=== PATIENT | female | born 1950 | race Caucasian/White ===

== ENCOUNTER → 2019-08-22 | Day surgery (SDC) | payer OTHER ==
[~2019-08-22] VITALS: Ht 154.9 cm; Wt 93.0 kg
[~2019-08-22] MED LIST: AFRIN15 ML NS; ALBUTEROL2.5 MG/0.5 INH; ALL DAY ALLERGY10 M3 PO; ASA81BEC PO; LEVOTHYROXIN0.125 M1 PO; MECLIZINE HCL25 MG PO; NORVASC 2.5 MG2.5 M1 PO; PANTOPRAZOLE SO40 M1 PO; PAXIL 20 MG TAB20 M1 PO; PAXIL10 MG PO; PROTONIX40 M1 PO; SINGULAIR 10 MG10 M1 PO; SYMBICORT160 MCG/4. INH; SYMBICORT160 MCG/4. PO; SYNTHROID125 MC1 PO; TESSALON PERLE100 MG PO; VENTOLIN HFA 1818 GM INH; VITAMIN C500 M1 PO; VITAMIN D3400 UNIT PO
[2019-08-22 08:55] VITALS: BP 125/76
--- NOTE | 2019-08-22 10:33 | EKG ---
[address] [place] [address] ELECTROCARDIOGRAM REPORT Name: KIA REYES Room #: 150-2 [facility] M.R.#: [id number] Admission: 08/22/19 Attend Phys: Jose Winchester Discharge: Date of : 46 Report #: [id number] THIS REPORT FOR: //name// [facility] Test Date: 2019-08-22 Test Time: 08:11:36 Pat Name: KIA REYES Department: Room: 150 2 Gender: F Inside Sales Administrator: kyle : 1950 Requested By: Jose Guerrero Order Number: [id number] MD: Prosper Logan Measurements Intervals [place] Rate: 72 P: 31 WI: 159 QRS: -39 QRSD: 97 T: 99 QT: 435 QTc: 477 Interpretive Statements Sinus rhythm Left axis deviation early transition Nonspecific T abnormalities, lateral leads Compared to ECG 06/18/2016 22:50:45 no significant changes Electronically Signed On 08-22-2019 10:33:00 CDT by Prosper Logan [email or web address] <ELECTRONICALLY SIGNED> By: Prosper Logan MD 08/22/19 1033 0 0 Prosper Logan MD /EPI
[2019-08-22 11:31] VITALS: BP 125/76
--- NOTE | 2019-09-24 11:38 | O ---
[facility] [place] [address] OPERATIVE REPORT Name: KIA REYES Room #: REG [facility] M.R.#: [id number] Admission: 08/22/19 Attend Phys: Jose Winchester Discharge: Date of : 46 Report #: [id number] THIS REPORT FOR: //name// CC: Jose Guerrero De Lior DATE OF SERVICE: 08/22/2019 PREOPERATIVE DIAGNOSIS: Left clavicle fracture, comminuted, displaced, shortened. POSTOPERATIVE DIAGNOSIS: Left clavicle fracture, comminuted, displaced, shortened. PROCEDURE PERFORMED: Open reduction and internal fixation of left midshaft clavicle fracture, bone grafting. SURGEON: Jose Guerrero MD GLASS SETTER: Renetta Husain PA-C. ANESTHESIA: General. FLUIDS: Approximately 800 mL of crystalloid. ESTIMATED BLOOD LOSS: Approximately 50 mL. IMPLANTS UTILIZED: Arthrex locking clavicle plate. DESCRIPTION OF PROCEDURE: After proper identification of the patient and operative site in preoperative holding area, the operative site was signed by myself. The patient was present with her daughter. We reviewed the risks, benefits, alternatives and potential complications of her injury as well as treatment. They wished to proceed with the above. The patient was brought back to the operative suite after induction of satisfactory general anesthesia in the beach chair. Head of bed was carefully elevated approximately 40 degrees. The left clavicle and shoulder was sterilely prepped and draped in the usual manner. Final skin draping was with Ioban. An incision overlying the shortened and displaced clavicle fracture was planned. Skin was incised sharply. Full thickness skin flaps were developed. Dissection continued down to the clavicle where subperiosteal dissection was used to expose the fracture site. There was comminution at the fracture site with multiple small fragments without any soft tissue attachment and along more posterior and inferior oblique component attached to the more laterally based fragment. The fracture was able to be reduced as best as possible, provisionally secured with a bone holding forceps and a locking plate was provisionally secured using two cortical screws. Its [facility] [address] [place] [address] OPERATIVE REPORT Name: KIA REYES Room #: REG [facility] M.R.#: [id number] Admission: 08/22/19 Attend Phys: Jose Winchester Discharge: Date of : 46 Report #: [id number] position was checked in the AP and lateral planes or its position was checked in multiple planes and it was deemed to be in satisfactory position due to the comminution and could not be anatomically aligned, but this was aligned to try and maximize the surface area of contact of the bony ends. There was a small bony defect where cancellous allograft chips were carefully impacted to fill this void, which was near the central screw hole that was not filled. Four screws with bicortical fixation was achieved medially and 3 screws laterally. Overall, reduction was satisfactory as well as hardware placement for the screw was utilized, 4 locking screws. Multiple implant images were taken. Overall, reduction and hardware placement was satisfactory. One gram of vancomycin powder was utilized, half of it deep, half of it more superficial. Fascial layer was closed with 0 Vicryl, 2-0 Vicryl for the subcutaneous tissues, final skin closure was with a running Monocryl. Dermabond was applied followed by a sterile dressing, should be placed in a sling and abduction pillow with anticipated discharge to the recovery room in stable condition. Qualified senior it assistant utilized throughout the entire procedure to aid in patient limb positioning, visualization and retraction of soft tissues, instrument passage, closure and sling and dressing applications. <ELECTRONICALLY SIGNED> By: Jose Guerrero MD 09/24/19 1138 1053 1306 Jose Guerrero MD /nt
== END | disposition home or self-care (01) ==
LOC: OR 07:42 → TBA 07:44 → OR 07:44
DX: S42.022A Displaced fracture of shaft of left clavicle, initial encounter for closed fracture (principal); I10 Essential (primary) hypertension; J45.909 Unspecified asthma, uncomplicated; K21.9 Gastro-esophageal reflux disease without esophagitis; G47.30 Sleep apnea, unspecified; E05.90 Thyrotoxicosis, unspecified without thyrotoxic crisis or storm; F32.9 Major depressive disorder, single episode, unspecified; F41.9 Anxiety disorder, unspecified; R05 Cough; Z79.899 Other long term (current) drug therapy; Z98.890 Other specified postprocedural states; Z88.8 Allergy status to other drugs, medicaments and biological substances; Z90.49 Acquired absence of other specified parts of digestive tract; Z79.82 Long term (current) use of aspirin; X58.XXXA Exposure to other specified factors, initial encounter; Y93.89 Activity, other specified; Y92.89 Other specified places as the place of occurrence of the external cause; Y99.8 Other external cause status
CPT/HCPCS: 50010; 50101; 50386; 50417; 50733; 53347; 54118; 55430; 56525; 56526; 62110; 62900; 64039; 70005